=== PATIENT | male | born 1995 | race Caucasian/White ===

== ENCOUNTER → 2016-12-14 | Outpatient (CLI) | payer BC ==
--- NOTE | 2016-12-14 20:17 | CT ---
EXAMINATION TYPE: CT abdomen pelvis w con DATE OF EXAM: 12/14/2016 8:01 PM COMPARISON: NONE HISTORY: RLQ pain per order. Right lower quadrant pain for [address] DLP: 370.7 mGycm, Automated Exposure Control for Dose Reduction was Utilized. CONTRAST: CT scan of the abdomen and pelvis is performed with oral and with IV Contrast, patient injected with 100 mL of Omnipaque 300. FINDINGS: LUNG BASES: No significant abnormality is appreciated. LIVER/GB: No significant abnormality is appreciated. PANCREAS: No significant abnormality is seen. SPLEEN: No significant abnormality is seen. ADRENALS: No significant abnormality is seen. KIDNEYS: No significant abnormality is seen. BOWEL: The oral contrast reaches level of the transverse colon. There is no suspicious small or large bowel dilatation. Normal-appearing appendix is seen from base of cecum in the right upper pelvis. Pa tient has very little intra-abdominal fat making evaluation suboptimal. PROSTATE/SEMINAL VESICLES: No gross abnormality seen. LYMPH NODES: No greater than 1cm abdominal or pelvic lymph nodes are appreciated. OSSEOUS STRUCTURES: No significant abnormality is seen. OTHER: No suspicious bowel or fat-containing inguinal hernia.. IMPRESSION: No significant acute finding is seen to account for patient's clinical symptoms.
== END | disposition home or self-care (01) ==
LOC: RADCTMAIN 19:38
PROVIDERS: ATTEND Surgery
DX: K40.90 Unilateral inguinal hernia, without obstruction or gangrene, not specified as recurrent (principal)
CPT/HCPCS: 74177; Q9967

== ENCOUNTER 2019-11-29 23:18 | Emergency (ER) | payer BC ==
[2019-11-29 23:23] VITALS: TEMP 98.3
--- NOTE | 2019-11-29 23:43 | ED ---
Head Injury HPI - General Chief complaint: Head Injury Stated complaint: Fall Time Seen by Provider: 11/29/19 23:26 Source: patient, family Mode of arrival: ambulatory Limitations: no limitations - History of Present Illness Initial comments: Patient is a 24-year-old male presenting to the emergency department after falling off his ladder at approximately 6 PM this evening. Patient states he was putting items in rafters in his garage when he lost his balance and fell backwards off his ladder. He states he thinks he was approximately 6-8 feet up on a ladder. Patient states he fell backwards hitting his back and his head. Patient believes he lost consciousness for approximately 5 seconds. This happened approximately 6 hours prior to arrival. Patient states he spoke with his father and another friend who told him he should come in to the ER for evaluation. Patient states he has had one episode of vomiting since the fall. He states he no longer feels nauseous. He does admit to having a headache. Patient states he's also been drinking this evening. He's had approximately 6 beers. Patient's girlfriend drove him to the hospital tonight. He denies any neck pain, abdominal pain, chest pain, trouble breathing. He denies any pain in his lower or upper extremities. He has been walking without difficulty. He denies being on blood thinners. He he has no other pertinent past medical history. Patient has no other complaints at this time. Upon arrival to the ER, his vital signs are stable. - Related Data Allergies/Adverse reactions: Allergies Allergy/AdvReac Type Severity Reaction Status Date / Time No Known Allergies Allergy Verified 11/29/19 23:23 Review of Systems ROS Statement: Those systems with pertinent positive or pertinent negative responses have been documented in the HPI. ROS Other: All systems not noted in ROS Statement are negative. Past Medical History Past Medical History: No Reported History History of Any Multi-Drug Resistant Organisms: None Reported Past Surgical History: No Surgical Hx Reported Past Psychological History: Anxiety Smoking Status: Current every day smoker Past Alcohol Use History: Occasional Past Drug Use History: None Reported General Exam - General Exam Comments Initial Comments: GENERAL: Well-appearing, well-nourished and in no acute distress. HEAD: Atraumatic, normocephalic. No signs of basal skull fracture. EYES: Pupils equal round and reactive to light, extraocular movements intact, sclera anicteric, conjunctiva are normal. ENT: TMs normal, nares patent, oropharynx clear without exudates. Moist mucous membranes. NECK: Normal range of motion, supple without lymphadenopathy or JVD. No midline tenderness. LUNGS: Breath sounds clear to auscultation bilaterally and equal. No wheezes rales or rhonchi. HEART: Regular rate and rhythm without murmurs, rubs or gallops. ABDOMEN: Soft, nontender, normoactive bowel sounds. No guarding, no rebound. No masses appreciated. : Deferred EXTREMITIES: Normal range of motion, no pitting or edema. No clubbing or cyanosis. 5 out of 5 strength in upper and lower extremities. No pain in all 4 extremities. Sens ation is equal in bilateral upper and lower extremities. NEUROLOGICAL: Cranial nerves II through XII grossly intact. Normal speech, normal gait. PSYCH: Normal mood, normal affect. SKIN: Warm, Dry, normal turgor, no rashes or lesions noted. Limitations: no limitations Course Vital Signs 11/29/19 23:18 Temperature 98.3 F Pulse Rate 102 H Respiratory 20 Rate Blood Pressure 133/89 O2 Sat by Pulse 100 Oximetry Medical Decision Making - Medical Decision Making Patient is a 24-year-old male here after falling off his ladder approximately 6 hours prior to arrival to the ER. Laying of headache, one episode of vomiting. Patient's vitals are stable upon arrival. His exam is unremarkable. There are no neuro deficits. CT of the head and neck show no acute abnormalities. I discussed with patient this is most likely a [id number] concussion. He may take Tylenol or Motrin as needed for headache. Strict return parameters were discussed with the patient and he verbalized understanding. Case discussed with Dr. Pena. Disposition Clinical Impression: Concussion, Fall Disposition: HOME SELF-CARE Condition: Stable Instructions (If sedation given, give patient instructions): Concussion (ED) Additional Instructions: Please return to the Emergency Department if symptoms worsen or any other concerns. May take Tylenol or Motrin for discomfort. Is patient prescribed a controlled substance at d/c from ED?: No Referrals: None,Stated [Primary Care Provider] - 1-2 days
--- NOTE | 2019-11-30 00:19 | CT ---
EXAMINATION TYPE: CT brain jose carlos wo con DATE OF EXAM: 11/30/2019 COMPARISON: None HISTORY: head and neck pain after fall CT DLP: 1330.8 mGycm Automated exposure control for dose reduction was used. Ventricles and sulci appear normal. There is no mass effect nor midline shift. There is no sign of in tracranial hemorrhage. Calvarium is intact. There is no evidence of cerebral edema. Cervical vertebra have normal alignment. Disc spaces are normal. Posterior elements are intact. Skull base is intact. Temporal bones appear intact. Facet joints appear normal. IMPRESSION: Normal CT scan of the brain. Normal CT scan cervical spine.
[2019-11-30] MEDS ORDERED: IBUPROFEN 600 MG TAB PO STA (00:27)
[2019-11-30 00:40] VITALS: BP 103/73; PULSE 73; RESP 18
== END 2019-11-30 00:41 | disposition home or self-care (01) ==
LOC: EC 23:18
DX: S06.0X1A Concussion with loss of consciousness of 30 minutes or less, initial encounter (principal); R11.10 Vomiting, unspecified; F17.200 Nicotine dependence, unspecified, uncomplicated; W11.XXXA Fall on and from ladder, initial encounter
CPT/HCPCS: 70450; 72125; 99283